=== PATIENT | female | born 1960 | race Hispanic/Latino ===

== ENCOUNTER → 2019-02-14 | Outpatient (CLI) | payer OTHER ==
--- NOTE | 2019-02-19 10:27 | Polysomnography ---
DATE OF STUDY: REFERRING PHYSICIAN: PROCEDURE: Home sleep study. HISTORY OF PRESENT ILLNESS: The patient reports some snoring and witnessed apnea at night. The patient has difficulty initiating and maintaining sleep. The patient reports daytime somnolence and often falls asleep during the day. INTERPRETATION: The patient slept for 421 minutes out of 468.5 minutes. The sleep efficiency was within the normal limits. The patient had 202 apneic events and 103 hypopneic events. The apnea-hypopnea index was 47 events per hour. IMPRESSION: Obstructive sleep apnea. RECOMMENDATIONS: 1. Auto PAP ranging from 4 cm to 20 cm of water pressure with a heated humidifier. 2. Patient's choice of mask. 3. Avoid alcohol or sedatives prior to retiring at night. 4. Achieve and maintain an ideal body weight. MD MARIAM Cheng/DARCI /[id number]
== END ==
LOC: SLEEP 19:39
PROVIDERS: ATTEND Internal Medicine
DX: G47.33 Obstructive sleep apnea (adult) (pediatric) (principal); R06.83 Snoring; G25.81 Restless legs syndrome
CPT/HCPCS: 95806

== ENCOUNTER → 2019-09-13 | Outpatient (CLI) | payer OTHER ==
--- NOTE | 2019-09-24 02:03 | Polysomnography ---
DATE OF STUDY: REFERRING PHYSICIAN: STUDY: Polysomnography report. HISTORY OF PRESENT ILLNESS: The patient has excessive snoring and difficulty initiating and maintaining sleep. The patient also has somnolence during the day and falls asleep at times. INTERPRETATION: The patient came to the laboratory for a CPAP titration study. The patient slept for 284.5 minutes out of 430.5 minutes. The sleep efficiency was 66.1%. The sleep onset latency was 9 minutes. The latency to REM was 100 minutes. The patient spent 45.5 minutes in REM sleep, which was 16% of the night. The minimal saturation was 64%. The minimal heart rate was 42 beats per minute. There were no arrhythmias. The patient spent 87.7% of the night in the supine position and the remainder of the night in the non-supine position. The production repairer desensitized the patient to CPAP and initiated CPAP at 5 cm of water pressure. CPAP was gradually increased to 12 cm of water pressure and then switched to BiPAP. The BiPAP was gradually increased to 16/12. At a setting of 16/12, the respiratory events were eliminated in the supine position sleep. There was no audible snoring. IMPRESSION: 1. Obstructive sleep apnea. 2. Successful treatment of obstructive sleep apnea was BiPAP. RECOMMENDATIONS: 1. BiPAP at 16/12. 2. Avoid alcohol or sedatives prior to retiring at night. 3. Achieve and maintain an ideal body weight. 4. Avoid lying in the supine position at night. MD MARIAM Cheng/DARCI /[id number]
== END ==
LOC: SLEEP 20:20
PROVIDERS: ATTEND Internal Medicine
DX: G47.30 Sleep apnea, unspecified (principal)
CPT/HCPCS: 95811

== ENCOUNTER 2025-05-23 14:36 | Emergency (ER) | payer MEDICARE, OTHER ==
[~2025-05-23] VITALS: Ht 152.4 cm; Wt 72.6 kg
[2025-05-23 15:24] LABS: BASOPHILS % 0.8 % (0.0-1.0); EOSINOPHILS % 2.6 % (0.0-6.0); LYMPHOCYTES % 39.4 % (18.0-39.1); MONOCYTES % 10.6 % (4.4-11.3); NEUTROPHILS % 46.4 % (38.7-80.0); RED CELL DISTRIBUTION WIDTH 13.3 % (11.7-14.4)
[2025-05-23 15:30] LABS: INR 0.89
[2025-05-23 15:41] LABS: EST GLOMERULAR FILTRATION RATE 67.0 ML/MIN (>=60)
[2025-05-23] MEDS ORDERED: IOPAMIDOL 370 MG/ML 100 ML INFUS..BTL INJ ONE (16:28)
[2025-05-23] MEDS ORDERED: SODIUM CHLORIDE 0.9% 1000ML 1,000 ML ONE (17:25)
[2025-05-23] MEDS ORDERED: MECLIZINE HCL 12.5 MG TAB ONE (17:25)
[2025-05-23] MEDS: ACETAMINOPHEN 325 MG TAB PO ONE (17:29)
[2025-05-23] MEDS: SODIUM CHLORIDE 0.9% 1000ML 1,000 ML IV STA (17:30)
[2025-05-23] MEDS: MECLIZINE HCL 12.5 MG TAB PO ONE (17:30)
[2025-05-23 17:53] LABS: LEUKOCYTE ESTERASE ,URINE NEGATIVE (NEGATIVE); PROTEIN,URINE DIPSTICK NEGATIVE (NEGATIVE); URINE UROBILINOGEN 0.2 mg/dL (0.2 - 1)
[2025-05-23 17:57] LABS: EPITHELIAL CELLS,URINE RARE /LPF; WBC,URINE (MAN) 0-5 /HPF (0-5)
[2025-05-23 19:00] VITALS: TEMP 97.8
[2025-05-23] MEDS: HYDRALAZINE HCL 20 MG/ML VIAL IV STA (19:09)
[2025-05-23] MEDS ORDERED: MECLIZINE HCL12.5 MG PO (19:12)
[2025-05-23] MEDS ORDERED: ONDANSETRON ODT4 MG PO (19:12)
[2025-05-23] MEDS ORDERED: HYDRALAZINE HCL25 MG PO (19:12)
[2025-05-23 19:23] VITALS: PULSE 66; RESP 17
[2025-05-23 19:28] VITALS: BP 149/71; PULSE 66; RESP 17; TEMP 97.8; O2SAT 99
== END 2025-05-23 19:36 | disposition home or self-care (01) ==
LOC: ER 15:06
DX: R42 Dizziness and giddiness (principal); I10 Essential (primary) hypertension; R51.9 Headache, unspecified; E78.5 Hyperlipidemia, unspecified; K21.9 Gastro-esophageal reflux disease without esophagitis; M19.09 Primary osteoarthritis, other specified site; R94.31 Abnormal electrocardiogram [ECG] [EKG]
CPT/HCPCS: 36415; 70450; 70496; 70498; 80053; 81001; 82550; 83735; 84484; 85025; 85610; 85730; 87086; 87186; 93005; 99284; J0360; J7030; J8597; Q9967